=== PATIENT | male | born 2000 | race Caucasian/White ===

== ENCOUNTER 2024-03-29 02:06 | Inpatient (IN) ==
[2024-03-29 04:23] LABS: ABS Eosinophils 0.1 10^3/uL (0.0-0.5); ABS Monocytes 0.6 10^3/uL (0.0-1.1); ABS Neutrophils 4.1 10^3/uL (1.5-7.6); ABS Nucleated RBC 0.01 10^3/ul; Eosinophil % 1.8 %; Hematocrit 40.1 % (38-53); Hemoglobin 14.4 g/dL (13.2-16.3); Lymphocyte % 29.5 %; Mean Corpuscular Hemoglobin 32.7 pg (27-33); Mean Corpuscular Hgb Conc 36.1 g/dL (31-36); Mean Corpuscular Volume 90.7 fL (80-97); Mean Platelet Volume 7.5 fL (7.5-11.2); Nucleated Red Blood Cells % 0.1 %/100WBC (0.0-0.8); Platelet Count 204 10^3/uL (150-450); Red Blood Count 4.42 10^6/uL (4.06-5.63); Red Cell Distribution Width 12.6 % (12-17); White Blood Count 6.9 10^3/uL (3.6-10.2)
[2024-03-29 04:27] LABS: Urine Appearance Clear; Urine Bilirubin Negative (Negative); Urine Blood Negative (Negative); Urine Color Colorless; Urine Glucose Negative (Negative); Urine Ketones Negative (Negative); Urine Nitrite Negative (Negative); Urine Protein Negative (Negative); Urine Specific Gravity 1.005 (1.002-1.030); Urine Urobilinogen Negative (Negative); Urine pH 5.5 (5.0-8.0)
[2024-03-29 04:47] LABS: Urine Benzodiazepine Screen None Detected (None Detect); Urine Cannabinoids Screen None Detected (None Detect); Urine Opiates Screen None Detected (None Detect)
[2024-03-29] MEDS ORDERED: Al Hydrox/Mg Hydrox/Simet LIQ 30 ML UDC PO PRN (05:21)
[2024-03-29 05:33] LABS: ALT 16 U/L (7-52); AST 18 U/L (13-39); Acetaminophen < 15 mcg/mL; Albumin 4.5 g/dL (3.2-5.2); Albumin/Globulin Ratio 1.8 (1-3); Alcohol, S 19 mg/dL (<13); Alkaline Phosphatase 93 U/L (35-149); Anion Gap 8 mmol/L (2-16); Blood Urea Nitrogen 10 mg/dL (6-24); CO2 Carbon Dioxide 27 mmol/L (22-32); Calcium 9.2 mg/dL (8.6-10.3); Chloride 102 mmol/L (101-111); Creatinine, Serum 0.79 mg/dL (0.67-1.17); Globulin 2.5 g/dL (2-4); Glucose 97 mg/dL (70-100); Potassium 3.5 mmol/L (3.5-5.0); Salicylate < 2.50 mg/dL (<30); Sodium 137 mmol/L (135-145); Total Bilirubin 0.4 mg/dL (0.2-1.0); eGFR CKD-EPI 128.8 (>60)
[2024-03-29 05:48] LABS: TSH Ultra Thyroid Stim Horm 3.37 mcIU/mL (0.34-5.60)
[2024-03-29] MEDS: Vitamin THERAPEUTIC TAB PO SCH (10:11)
[2024-03-29] MEDS: Estradiol 1 mg TAB (NF) PO SCH (10:12)
[2024-03-29 14:33] LABS: HIV 4th Generation Nonreactive (Nonreactive)
[2024-03-29] MEDS ORDERED: Benzocaine/Menthol LOZ MT PRN (17:38)
[2024-03-29] MEDS: CMC:Estradiol 1 mg TAB (NF) PO SCH (21:17)
[2024-03-30 08:30] LABS: HDL Cholesterol 54.9 mg/dL
[2024-03-30 13:41] VITALS: BP 113/73
== END 2024-03-30 11:00 | disposition home or self-care (01) | DRG 881 ==
LOC: ED 02:06 → EDHOLD 05:26 → BSU 05:29
PROVIDERS: ADMIT Student in an Organized Health Care Education/Training Program; ATTEND Student in an Organized Health Care Education/Training Program